=== PATIENT | male | born 2000 | race Caucasian/White ===

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

== ENCOUNTER 2022-01-06 20:35 | Emergency (ER) | payer MEDICAID ==
--- NOTE | 2022-01-06 20:45 | ERPHSYRPT ---
- History of Present Illness Time Seen by Provider: 01/06/22 20:44 Source: patient Exam Limitations: no limitations Physician History: This is a right-handed 21-year-old white male whose tetanus status is up-to-date and accidentally pinched his skin of the left hand of the first webspace dorsal aspect between a wrench and a hammer when he was fixing an F150 at approximately 2 PM this afternoon. There was a small laceration present and it has not healed or sealed well. There is no active bleeding upon entrance into the emergency department. Occurred: this afternoon Method of Injury: direct blow Quality: sharpness Severity of Pain-Max: mild Severity of Pain-Current: none Extremities Pain Location: hand: left (Skin of dorsal aspect left hand first webspace) Modifying Factors: Improves With: nothing Associated Symptoms: none Allergies/Adverse Reactions: No Known Drug Allergies Allergy (Verified 01/06/22 21:38) Home Medications: Methylphenidate HCl [Concerta] 36 mg PO DAILY 11/12/12 [History] Hx Tetanus, Diphtheria Vaccination/Date Given: No Hx Influenza Vaccination/Date Given: No Hx Pneumococcal Vaccination/Date Given: No Travel Risk - International Travel Have you traveled outside of the country in past 3 weeks: No - Coronavirus Screening Are you exhibiting any of the following symptoms?: No Close contact with a COVID-19 positive Pt in past 14-21 Days: No - Vaccine Status Have you recieved a Covid-19 vaccination: No - Review of Systems Constitutional: No Symptoms Eyes: No Symptoms Ears, Nose, & Throat: No Symptoms Respiratory: No Symptoms Cardiac: No Symptoms Abdominal/Gastrointestinal: No Symptoms Genitourinary Symptoms: No Symptoms Musculoskeletal: No Symptoms Skin: Other (Skin laceration) Neurological: No Symptoms Psychological: No Symptoms Endocrine: No Symptoms Hematologic/Lymphatic: No Symptoms Immunological/Allergic: No Symptoms All Other Systems: Reviewed and Negative - Past Medical History Pertinent Past Medical History: Yes Cardiac History: Other History: Other Other Medical History: 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 - Past Surgical History Past Surgical History: No - Social History Smoking Status: Never smoker Exposure to second hand smoke: Yes Drug Use: none Patient Lives Alone: No - Nursing Vital Signs Nursing Vital Signs: Initial Vital Signs Temperature 98.0 F 01/06/22 21:26 Pulse Rate 85 01/06/22 21:26 Respiratory Rate 16 01/06/22 21:26 Blood Pressure 150/67 01/06/22 21:26 O2 Sat by Pulse Oximetry 99 01/06/22 21:26 Pain Scale Pain Intensity 0 - Physical Exam General Appearance: no apparent distress, alert, anxiety Eyes, Ears, Nose, Throat Exam: normal ENT inspection, moist mucous membranes Neck Exam: normal inspection, non-tender, supple, full range of motion Cardiovascular/Respiratory Exam: chest non-tender, no respiratory distress Abdominal Exam: non-tender Back Exam: normal inspection, normal range of motion, No CVA tenderness, No vertebral tenderness Shoulder Exam: normal inspection, non-tender, no evidence of injury, normal ROM Elbow/Forearm Exam: normal inspection, non-tender, no evidence of injury, normal ROM Wrist Exam: normal inspection, non-tender, no evidence of injury, normal ROM Hand Exam: laceration (1 cm. Neurovascularly intact. No foreign body present. Present dorsal aspect left hand first webspace) Mental Status Exam: alert, oriented x 3 Skin Exam: normal color, warm, dry, laceration (See above) SpO2 Interpretation: normal O2 Delivery: Room Air Procedures - Laceration/Wound Repair Left Dorsal Hand Time of Procedure: 21:30 Wound Location: Left, hand Wound Length (cm): 1 Wound's Depth, Shape: superficial, linear, into subcut Wound Explored: clean (Wound examined to the base in a bloodless field no foreign body noted) Irrigated: Yes Hibiclens Prep: Yes Wound Repaired With: Steri-strips, Dermabond - Progress Progress: improved Counseled pt/family regarding: diagnosis - Departure Departure Disposition: Home Clinical Impression: Laceration of left hand Condition: Stable Critical Care Time: No Referrals: LIN SAUER NP [Primary Care Provider] - Follow up/PCP as directed Additional Instructions: Keep current dressing in place for 24 hours. On the evening 01/07/2022, remove the top dressing and leave the Steri-Strips in place. May then wash daily thereafter. After each washing blot dry use a hairdryer. Leave the Steri- Strips in place till they curl up on their own and then trim them. Steri-Strips will likely fall off in 7 to 10 days. Use Tylenol and ibuprofen for pain control.
[2022-01-06 21:38] VITALS: BP 150/67; O2SAT 99
[2022-01-06 22:35] VITALS: PULSE 76
== END 2022-01-06 22:35 | disposition home or self-care (01) ==
LOC: ED 20:35
DX: S61.412A Laceration without foreign body of left hand, initial encounter (principal); W27.8XXA Contact with other nonpowered hand tool, initial encounter; Z79.899 Other long term (current) drug therapy; Z28.310 Unvaccinated for COVID-19
CPT/HCPCS: 12001; 99281

== ENCOUNTER 2022-03-10 20:50 | Emergency (ER) | payer MEDICAID ==
[2022-03-10 21:06] VITALS: O2SAT 97
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
[2022-03-10 22:07] VITALS: BP 128/76; PULSE 87
--- NOTE | 2022-03-11 08:28 | XRAY ---
Indication: Dizziness. Multiple contiguous axial images obtained through the head without contrast. Comparison: None Normal appearing brain parenchyma, ventricles, and bony calvarium. Visualized paranasal sinuses and mastoid air cells are clear. Impression: Normal CT head without contrast exam.
== END 2022-03-10 22:22 | disposition home or self-care (01) ==
LOC: ED 20:50
DX: R42 Dizziness and giddiness (principal); I10 Essential (primary) hypertension; Z79.899 Other long term (current) drug therapy; Z28.310 Unvaccinated for COVID-19
CPT/HCPCS: 70450; 93005; 99283